=== PATIENT | male | born 1975 | race Caucasian/White ===

== ENCOUNTER 2017-02-06 13:54 | Emergency (ER) | payer MEDICARE, MEDICAID ==
[~2017-02-06] VITALS: Ht 177.8 cm; Wt 77.1 kg
[2017-02-06] MEDS ORDERED: NS IV 1000 ML 1,000 ML IV ONE (14:15)
--- NOTE | 2017-02-06 14:15 | ED GU-Male ---
General Chief Complaint: Cardiac/General Problems Stated Complaint: BLOOD PRESSURE DROPPING Nursing Triage Note: ARRIVED VIA WC TO ROOM 07 WITH COMPLAINTS OF HYPOTENSION. STATES IT HAS BEEN LOW FOR SEVERAL DAYS AND HAS TAKEN MIDODRINE TO INCRESASE IT. CALLED WHO TOLD HIM TO COME TO ER. PT THINKS IT MIGHT BE A UTI. Source: patient, spouse Exam Limitations: no limitations History of Present Illness Time seen by provider: 14:07 Initial Comments Patient presents to ER by private conveyance with his with concern that the past few days he has had labile blood pressure. 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 But he's the pressure has been more labile as of the last 3 days. He is using a miter gin that was prescribed to him to keep his blood pressure up the ball and as low as 60 systolic. He was feeling pale and weak. He is in a electronic wheelchair. Denies any cough, fevers, malaise, shortness of breath. He has a suprapubic Catheter which he changed last week. He does not smoke, drink or do drugs. Patient has been on prednisone for over a year. This is to treat his ulcerative colitis. He is recently tapered down from 15-7-1/2 mg daily. Allergies and Home Medications Allergies Coded Allergies: morphine (Unverified Allergy, Unknown, 09/09/15) Constitutional: No chills, No fever, No malaise Respiratory: No short of breath, No wheezing Cardiovascular: No palpitations, No syncope Gastrointestinal: No abdominal pain, constipation, No diarrhea, No nausea, No vomiting Genitourinary: see HPI Musculoskeletal: see HPI, No back pain, No joint pain Skin: No pruritus, No rash Psychiatric/Neurological: Denies Headache, Denies Numbness Past Axawgfu-Raauws-Tqnlmw Hx Patient Social History Alcohol Use: Denies Use Recreational Drug Use: Yes Smoking Status: Never a Smoker Recent Foreign Travel: No Contact w/Someone Who Travel: No Recent Infectious Disease Expo: No Recent Hopitalizations: No Respiratory Hx Respiratory Disorders: No Neurological Neurological Disorders: Spinal Cord Injury Physical Exam Vital Signs Vital Sign - Last 12Hours 02/06/17 14:01 Temp 97.5 Pulse 78 Resp 18 B/P (MAP) 101/76 Pulse Ox 92 O2 Delivery Room Air Capillary Refill : Less Than 3 Seconds General Appearance: WD/WN, no apparent distress (motorized wheelchair) HEENT: normal ENT inspection, TMs normal, pharynx normal Neck: non-tender, normal inspection Cardiovascular: normal peripheral pulses, regular rate, rhythm, no edema ( graduated elastic compression stockings in place bilateral lower extremity's.) Respiratory: lungs clear, normal breath sounds Gastrointestinal: normal bowel sounds, non tender, soft Male: normal genitalia, other (suprapubic catheter without erythema or discharge. Dressing in place.) Neurologic/Psychiatric: alert, oriented x 3 Skin: normal color, warm/dry Lymphatic: no adenopathy Progress/Results/Core Measures Results/Orders Lab Results Laboratory Tests Test 02/06/17 14:10 02/06/17 14:15 Range/Units Urine Color YELLOW Urine Clarity CLEAR Urine pH 6 5-9 Urine Specific [place] 1.005 L 1.016-1.022 Urine Protein 2+ H NEGATIVE Urine Glucose (UA) NEGATIVE NEGATIVE Urine Ketones NEGATIVE NEGATIVE Urine Nitrite NEGATIVE NEGATIVE Urine Bilirubin NEGATIVE NEGATIVE Urine Urobilinogen NORMAL NORMAL MG/DL Urine Leukocyte Esterase 3+ H NEGATIVE Urine RBC (Auto) 5+ H NEGATIVE Urine RBC 0-2 /HPF Urine WBC 25-50 H /HPF Urine Crystals NONE /LPF Urine Bacteria TRACE /HPF Urine Casts NONE /LPF Urine Mucus NEGATIVE /LPF Urine Culture Indicated YES White Blood Count 14.2 H 4.3-11.0 10^3/uL Red Blood Count 4.47 4.35-5.85 10^6/uL Hemoglobin 13.4 13.3-17.7 G/DL Hematocrit 41 40-54 % Mean Corpuscular Volume 92 80-99 FL Mean Corpuscular Hemoglobin 30 25-34 PG Mean Corpuscular Hemoglobin Concent 33 32-36 G/DL Red Cell Distribution Width 15.4 H 10.0-14.5 % Platelet Count 318 130-400 10^3/uL Mean Platelet Volume 10.7 H 7.4-10.4 FL Neutrophils (%) (Auto) 80 H 42-75 % Lymphocytes (%) (Auto) 9 L 12-44 % Monocytes (%) (Auto) 7 0-12 % Eosinophils (%) (Auto) 4 0-10 % Basophils (%) (Auto) 0 0-10 % Neutrophils # (Auto) 11.4 H 1.8-7.8 X 10^3 Lymphocytes # (Auto) 1.2 1.0-4.0 X 10^3 Monocytes # (Auto) 1.0 0.0-1.0 X 10^3 Eosinophils # (Auto) 0.5 H 0.0-0.3 10^3/uL Basophils # (Auto) 0.0 0.0-0.1 10^3/uL Neutrophils % (Manual) 75 % Lymphocytes % (Manual) 12 % Monocytes % (Manual) 9 % Eosinophils % (Manual) 3 % Band Neutrophils 1 % Anisocytosis SLIGHT Sodium Level 141 135-145 MMOL/L Potassium Level 3.3 L 3.6-5.0 MMOL/L Chloride Level 107 98-107 MMOL/L Carbon Dioxide Level 24 21-32 MMOL/L Anion Gap 10 5-14 MMOL/L Blood Urea Nitrogen 12 7-18 MG/DL Creatinine 0.72 0.60-1.30 MG/DL Estimat Glomerular Filtration Rate > 60 BUN/Creatinine Ratio 17 Glucose Level 139 H 70-105 MG/DL Calcium Level 9.5 8.5-10.1 MG/DL Total Bilirubin 0.5 0.1-1.0 MG/DL Aspartate Amino Transf (AST/SGOT) 16 5-34 U/L Alanine Aminotransferase (ALT/SGPT) 23 0-55 U/L Alkaline Phosphatase 90 40-136 U/L Total Protein 7.1 6.4-8.2 GM/DL Albumin 3.7 3.2-4.5 GM/DL My Orders Orders - HERNANDEZ CAPELLAN Cbc With Automated Diff (02/06/17 14:15) Comprehensive Metabolic Panel (02/06/17 14:15) Ua Culture If Indicated (02/06/17 14:15) Saline Lock/Iv-Start (02/06/17 14:15) Ns Iv 1000 Ml (Sodium Chloride 0.9%) (02/06/17 14:15) Manual Differential (02/06/17 14:15) Ua Culture If Indicated (02/06/17 14:28) Urine Culture (02/06/17 14:10) Ceftriaxone Injection (Rocephin Injectio (02/06/17 14:45) Potassium Chloride (Tablet) (K Dur Table (02/06/17 15:15) Medications Given in ED Current Medications Medications Dose Ordered Sig/Jovanni Route Start Time Stop Time Status Last Admin Dose Admin Ceftriaxone Sodium 1000 mg/ Sodium Chloride 50 ml @ 100 mls/hr ONCE ONCE IV 02/06/17 14:45 02/06/17 15:14 DC 02/06/17 15:06 100 MLS/HR Potassium Chloride 20 meq ONCE ONCE PO 02/06/17 15:15 02/06/17 15:16 DC 02/06/17 15:09 20 MEQ Sodium Chloride 1,000 ml @ 0 mls/hr Q0M ONCE IV 02/06/17 14:15 02/06/17 14:17 DC 02/06/17 14:21 1,000 MLS/HR Vital Signs/I&O Vital Sign - Last 12Hours 02/06/17 14:01 Temp 97.5 Pulse 78 Resp 18 B/P (MAP) 101/76 Pulse Ox 92 O2 Delivery Room Air Blood Pressure Mean: 84 Progress Note : Time: 15:30 Progress Note Elevated white count is mild and may be due to the prednisone as it was seen about the same in 2016. We'll give a gram of Rocephin and set him up for Keflex outpatient. His PCP can follow the culture. Departure Impression Impression: Primary Impression: UTI (urinary tract infection) Qualified Codes: T83.510A - Infection and inflammatory reaction due to cystostomy catheter, initial encounter; N39.0 - Urinary tract infection, site not specified Disposition: 01 HOME, SELF-CARE Condition: Stable Departure-Patient Inst. Decision time for Depature: 15:31 Referrals: CORI PHAM DO (PCP) Primary Care Physician Patient Instructions: Urinary Tract Infection, Adult (DC) Add. Discharge Instructions: You have a UTI which is associated with your catheter. You should call Dr. Pham and have his office follow the culture results in 2-3 days. You'll be started on antibiotic called Keflex to be taken twice daily with a meal. You should also use probiotics twice daily. If you have new or worsening symptoms such as fever or nausea a should return to the ER otherwise plan on following up with your primary care physician as needed. Drink plenty of fluids. Your potassium was marginally low. You've been given a single dose of potassium in the ER and you should probably eat some bananas or take a multivitamin or drinking Gatorade when you get home. All discharge instructions reviewed with patient and/or family. Voiced understanding. Scripts Cephalexin (Keflex) 500 Mg Capsule 500 MG PO BID for 14 Days, #12 CAP 0 Refills Prov: HERNANDEZ CAPELLAN 02/06/17 HERNANDEZ CAPELLAN Feb 06, 2017 14:15
[2017-02-06 14:21] LABS: BILIRUBIN,URINE NEGATIVE (NEGATIVE); KETONES,URINE NEGATIVE (NEGATIVE); LEUKOCYTE ESTERASE ,URINE 3+ (NEGATIVE); NITRITE,URINE NEGATIVE (NEGATIVE); PH,URINE 6 (5-9); PROTEIN,URINE 2+ (NEGATIVE); UROBILINOGEN,URINE NORMAL (NORMAL)
[2017-02-06 14:24] LABS: BASOPHILS % (AUTO) 0 % (0-10); EOSINOPHILS # (AUTO) 0.5 10^3/uL (0.0-0.3); EOSINOPHILS % (AUTO) 4 % (0-10); LYMPHOCYTES # (AUTO) 1.2 X 10^3 (1.0-4.0); LYMPHOCYTES % (AUTO) 9 % (12-44); MEAN CORPUSCULAR HEMOGLOBIN 30 PG (25-34); MEAN CORPUSCULAR HGB CONC 33 G/DL (32-36); MEAN CORPUSCULAR VOLUME 92 FL (80-99); MEAN PLATELET VOLUME 10.7 FL (7.4-10.4); MONOCYTES % (AUTO) 7 % (0-12); NEUTROPHILS # (AUTO) 11.4 X 10^3 (1.8-7.8); NEUTROPHILS % (AUTO) 80 % (42-75); PLATELET COUNT 318 10^3/uL (130-400); RED BLOOD COUNT 4.47 10^6/uL (4.35-5.85); RED CELL DISTRIBUTION WIDTH 15.4 % (10.0-14.5); WHITE BLOOD COUNT 14.2 10^3/uL (4.3-11.0)
[2017-02-06 14:29] LABS: WBC,URINE 25-50 /HPF
[2017-02-06] MEDS ORDERED: cefTRIAXone INJECTION 1,000 MG in NS (IVPB) 50 ML IV ONE (14:45)
[2017-02-06 14:49] LABS: ALANINE AMINOTRANSFERASE 23 U/L (0-55); ALBUMIN 3.7 GM/DL (3.2-4.5); ANION GAP 10 MMOL/L (5-14); ASPARTATE AMINO TRANSFERASE 16 U/L (5-34); BILIRUBIN,TOTAL 0.5 MG/DL (0.1-1.0); BLOOD UREA NITROGEN 12 MG/DL (7-18); BUN/CREATININE RATIO 17; CALCIUM 9.5 MG/DL (8.5-10.1); CARBON DIOXIDE 24 MMOL/L (21-32); CHLORIDE 107 MMOL/L (98-107); CREATININE SERUM 0.72 MG/DL (0.60-1.30); GFR ESTIMATED > 60; GLUCOSE 139 MG/DL (70-105); POTASSIUM 3.3 MMOL/L (3.6-5.0); SODIUM 141 MMOL/L (135-145); TOTAL PROTEIN 7.1 GM/DL (6.4-8.2)
[2017-02-06 14:51] LABS: BAND NEUTROPHILS 1 %; EOSINOPHILS % (MANUAL) 3 %; LYMPHOCYTES % (MANUAL) 12 %; NEUTROPHILS % (MANUAL) 75 %
[2017-02-06 14:57] LABS: ANISOCYTOSIS SLIGHT
[2017-02-06] MEDS ORDERED: KCL 20 MEQ TAB (K-DUR) PO ONE (15:15)
[2017-02-06] MEDS ORDERED: CEPH-507 PO (15:36)
[2017-02-06 15:40] VITALS: BP 124/82
--- OUTSIDE RECORDS SUMMARY | 2017-02-07 17:57 | XMS REPORT | Continuity of Care Document ---
Author Author [facility] Organization [facility] Address Unknown Phone Unavailable Allergies Active Description Code Type Severity Reaction Onset Reported/Identified Relationship to Patient Clinical Status Yes morphine [id number] Drug Allergy Unknown N/A 09/09/2015 Medications Problems Date Dx Coded Attending Type Code Diagnosis Diagnosed By 03/28/2011 Ot 272.4 HYPERLIPIDEMIA NEC/NOS 03/28/2011 Ot 344.00 QUADRIPLEGIA, UNSPECIFIED 03/28/2011 Ot 556.9 ULCERATIVE COLITIS, UNSPECIFIED 03/28/2011 Ot 596.54 NEUROGENIC BLADDER, NOT OTHERWISE SPECIF 05/14/2012 Ot 272.4 HYPERLIPIDEMIA NEC/NOS 05/14/2012 Ot 344.00 QUADRIPLEGIA, UNSPECIFIED 05/14/2012 Ot 556.9 ULCERATIVE COLITIS, UNSPECIFIED 05/14/2012 Ot 596.54 NEUROGENIC BLADDER, NOT OTHERWISE SPECIF 01/07/2013 Ot 789.00 ABDOMINAL PAIN, UNSPECIFIED SITE 01/07/2013 Ot 790.6 ABN BLOOD CHEMISTRY NEC 10/27/2014 Ot 787.99 10/27/2014 Ot 788.99 10/27/2014 Ot 789.00 10/27/2014 Ot 599.72 10/27/2014 CORI VERDE DO Ot 723.1 10/27/2014 MANNY GOLDBERG Ot 611.1 05/13/2015 Ot 787.99 05/13/2015 Ot 788.99 05/13/2015 Ot 789.00 05/13/2015 Ot 599.72 05/13/2015 CORI VERDE DO Ot 723.1 05/13/2015 MANNY GOLDBERG Ot 611.1 05/13/2015 Ot 787.99 05/13/2015 Ot 788.99 05/13/2015 Ot 789.00 05/13/2015 Ot 599.72 05/13/2015 CORI VERDE DO Ot 723.1 05/13/2015 MANNY GOLDBERGP Ot 611.1 06/03/2015 DEFFENBAUGH DO, CELIO D Ot E03.9 06/03/2015 DEFFENBAUGH DO, CELIO D Ot K51.011 06/03/2015 DEFFENBAUGH DO, CELIO D Ot K51.211 06/03/2015 DEFFENBAUGH DO, CELIO D Ot R63.4 06/03/2015 DEFFENBAUGH DO, CELIO D Ot R78.9 06/03/2015 Ot 787.99 06/03/2015 Ot 788.99 06/03/2015 Ot 789.00 06/03/2015 Ot 599.72 06/03/2015 CORI VERDE DO Ot 723.1 06/03/2015 MANNY GOLDBERG [facility] Ot 611.1 06/03/2015 DEFFENBAUGH DO, CELIO D Ot E03.9 06/03/2015 DEFFENBAUGH DO, CELIO D Ot K51.011 06/03/2015 DEFFENBAUGH DO, CELIO D Ot K51.211 06/03/2015 DEFFENBAUGH DO, CELIO D Ot R63.4 06/03/2015 DEFFENBAUGH DO, CELIO D Ot R78.9 09/11/2015 DEFFENBAUGH DO, CELIO D Ot D64.9 09/11/2015 DEFFENBAUGH DO, CELIO D Ot D64.9 09/11/2015 DEFFENBAUGH DO, CELIO D Ot D64.9 09/11/2015 DEFFENBAUGH DO, CELIO D Ot D64.9 09/14/2015 DEFFENBAUGH DO, CELIO D Ot D64.9 09/14/2015 DEFFENBAUGH DO, CELIO D Ot D64.9 09/16/2015 DEFFENBAUGH DO, CELIO D Ot D64.9 09/18/2015 DEFFENBAUGH DO, CELIO D Ot D64.9 11/05/2015 DEFFENBAUGH DO, CELIO D Ot D64.9 11/06/2015 DEFFENBAUGH DO, CELIO D Ot D64.9 12/08/2015 DEFFENBAUGH DO, CELIO D Ot D64.9 ANEMIA, UNSPECIFIED 06/02/2016 Ot 787.99 OTHER GI SYSTEM SYMPTOMS 06/02/2016 Ot 788.99 OTHER SYMPTOMS INVOLVING URINARY SYSTEM 06/02/2016 Ot 789.00 ABDOMINAL PAIN, UNSPECIFIED SITE 06/02/2016 Ot 599.72 MICROSCOPIC HEMATURIA 06/02/2016 MEHREEN CORI SAVAGE Ot 723.1 CERVICALGIA 06/02/2016 GOLDBERG MANNY Merry [employer] Ot 611.1 HYPERTROPHY OF BREAST 06/02/2016 CELIO GUZMÁN DO Ot E03.9 HYPOTHYROIDISM, UNSPECIFIED 06/02/2016 CELIO GUZMÁN DO Ot K51.011 ULCERATIVE (CHRONIC) PANCOLITIS WITH REC 06/02/2016 CELIO GUZMÁN DO Ot K51.211 ULCERATIVE (CHRONIC) PROCTITIS WITH RECT 06/02/2016 CELIO GUZMÁN DO Ot R63.4 ABNORMAL WEIGHT LOSS 06/02/2016 CELIO GUZMÁN DO Ot R78.9 FINDING OF UNSP SUBSTANCE, NOT NORMALLY 06/02/2016 CELIO GUZMÁN DO Ot D64.9 ANEMIA, UNSPECIFIED 06/03/2016 JOSE MEEKS MD Ot G82.50 QUADRIPLEGIA, UNSPECIFIED 06/03/2016 JOSE MEEKS MD Ot M81.0 AGE-RELATED OSTEOPOROSIS W/O CURRENT PAT 06/03/2016 JOSE MEEKS MD Ot Z79.52 LONGTERM (CURRENT) USE OF SYSTEMIC STER 06/22/2016 JOSE MEEKS MD Ot G82.50 QUADRIPLEGIA, UNSPECIFIED 06/22/2016 JOSE MEEKS MD Ot M81.0 AGE-RELATED OSTEOPOROSIS W/O CURRENT PAT 06/22/2016 JOSE MEEKS MD Ot Z79.52 LONGTERM (CURRENT) USE OF SYSTEMIC STER Procedures Results Encounters ACCT No. Visit Date/Time Discharge Status Pt. Type Provider Facility Loc./Unit Complaint [id number] 09/18/2015 10:26:00 2015 00:01:00 [facility] [id number] 05/14/2015 15:07:00 2014 23:59:59 CLS Outpatient CELIO GUZMÁN DO [facility] LAB R78.9 [id number] 05/13/2015 09:51:00 2014 23:59:59 CLS Outpatient CELIO GUZMÁN DO [facility] LAB ULCERATIVE PANCOLITIS,ABN WEIGHT LOSS,HYPOTHYROIDI [id number] 04/01/2014 09:54:00 2013 23:59:59 CLS Outpatient MANNY GOLDBERG [facility] RAD MASS [id number] 08/22/2013 13:15:00 2013 23:59:59 CLS Outpatient CORI VERDE DO [facility] RAD CERVICAL SPASM [id number] 04/04/2013 19:43:00 2012 23:59:59 CLS Outpatient [id number] 06/02/2016 10:07:00 ACT Outpatient JOSE MEEKS MD [facility] RAD QUADRIPLEGIA CHRONIC USE OF PRETNISONE [id number] 12/09/2015 00:09:00 PEN Preadmit CELIO GUZMÁN DO [facility] SDC ANEMIA [id number] 10/19/2012 11:35:00 Document Registration [id number] 10/09/2012 12:12:00 Document Registration [id number] 10/04/2012 14:28:00 Document Registration [id number] 02/15/2012 10:37:00 Document Registration [id number] 12/29/2010 10:16:00 Document Registration
--- OUTSIDE RECORDS SUMMARY | 2017-02-07 17:57 | XMS REPORT | Continuity of Care Document ---
Author Author [facility] Organization [facility] Address Unknown Phone Unavailable Care Team Providers Care [employer] Supervisor Name Role Phone Guillaume Pham PCP [phone] Source Comments Some departments are not documenting in the electronic medical record. If you do not see the information that you expected, contact Release of Information in the Health Information Management department at [phone] for further assistance in locating additional records.[facility] Active Allergies and Adverse Reactions Allergen Noted Date Severity Reactions Comments Morphine 06/14/2015 Medium SHORTNESS OF BREATH Current Medications Prescription Sig. Disp. Refills Start End Date Status Date baclofen (LIORESAL) 20 mg Take 20 mg by mouth twice Active tablet daily. oxybutynin XL (DITROPAN Take 10 mg by mouth Active XL) 10 mg tablet daily. MULTIVITAMIN (MULTIPLE Take 1 Tab by mouth daily Active VITAMIN PO) as needed. bisacodyl (DULCOLAX) 10 Insert or Apply 10 mg to Active mg rectal suppository rectal area as directed daily. docusate sodium (ENEMEEZ) Insert or Apply 1 Enema Active 283 mg/5 mL enem to rectal area as directed daily. May repeat as needed. acetaminophen (TYLENOL) Take 2 Tabs by mouth 30 Tab 1 06/19/20 Active 325 mg tablet every 4 hours as needed. 15 mirtazapine (REMERON) 15 Take 15 mg by mouth at Active mg tablet bedtime daily. Lactobacillus rhamnosus Take 1 Cap by mouth twice 60 Cap 3 08/10/19 Active GG (CULTURELLE) 15 daily with meals. 16 billion cell cpSP loperamide (IMODIUM) 2 mg Take 1 Cap by mouth four 30 Cap 08/10/19 Active capsule times daily as needed for 16 Diarrhea. Mesalamine (LIALDA) 1.2 Take 4 Tabs by mouth 120 Tab 1 08/10/19 Active gram tablet daily. Swallow whole; do 16 not break, chew or crush. Administer with a meal. Indications: ULCERATIVE COLITIS hemorrhoidal prep Insert or Apply 1 12 0 08/10/19 Active (ANUSOL) 0.25 % rectal Suppository to rectal Suppository 16 suppository area as directed daily as needed (hemorrhoidal bleeding). nystatin (MYCOSTATIN) Apply bid prn to scrotum 30 g 0 08/10/19 Active 100,000 unit/g topical as needed for rash 16 cream mesalamine(+) (CANASA) Insert or Apply 1 60 1 08/10/19 Active 1,000 mg supp Suppository to rectal Suppository 16 area as directed twice daily. Active Problems Problem Noted Date Chronic osteomyelitis of pelvis ([facility]) 07/28/2015 Osteomyelitis, pelvis ([facility]) 07/08/2015 Acute osteomyelitis of pelvic region ([facility]) 06/14/2015 Overview: S/p debridement of right ischial tuberosity 06/13/15 L ast Assessment & Plan: Wound healed. Able to get wet. Do not have to keep it covered. Should practice frequent offloading and position changing and avoid time on this wound. Monitor for changes. Abx per ID recs. Can fu with ortho on a PRN basis. Agree with fu with rehab hospital as scheduled for later this month for the leg spasms. Surgery can exacerbate those and may take time to decrease. Immunizations Name Dates Previously Given Next Due Flu Vaccine 06/14/2015 Quadrivalent=>3 Yo (Preservative Free) Social History Tobacco Use Types Packs/Day Years Used Date Never Smoker Smokeless Tobacco: Never Used Tobacco Cessation: Counseling Given: Yes Comments: Alcohol Use Drinks/Week oz/Week Comments No 0 Standard 0.0 drinks or equivalent Last Filed Vital Signs Vital Sign Reading Time Taken Blood Pressure 99/65 08/10/2015 6:18 AM PROGRAM DIRECT[employer]ION Pulse 69 08/10/2015 6:18 AM PROGRAM DIRECT[employer] TELE[employer]ION Temperature 36.4 C (97.6 F) 08/10/2015 6:18 AM PROGRAM DIRECTOR [employer] TELEVISION Respiratory Rate - - Height 1.829 m (6') 08/03/2015 8:56 AM PROGRAM [employer] TELEVISION Weight 68.04 kg (150 lb) 08/03/2015 8:56 AM PROGRAM DIRECT[employer] TELEVISION Body Mass Index 20.34 08/03/2015 8:56 AM PROGRAM DIRECT[employer] TELEVISION Oxygen Saturation 98% 08/10/2015 6:18 AM PROGRAM DIRECT[employer] TELEVISION Plan of Care Health Maintenance Due Date Last Done Comments Physical (Comprehensive) 1980 Exam Pertussis Vaccine 1984 Tetanus Vaccine 1990 Influenza Vaccine 03/31/2017 06/14/2015 Results from Last 3 Months Not on file
== END 2017-02-06 15:40 | disposition home or self-care (01) ==
LOC: EDUNIT# 13:54 → ER 13:56
DX: F19.90 Other psychoactive substance use, unspecified, uncomplicated; Z87.828 Personal history of other (healed) physical injury and trauma; N39.0 Urinary tract infection, site not specified
CPT/HCPCS: 36415; 80053; 81000; 85007; 85027; 87077; 87088; 87186; 96361; 96365

== ENCOUNTER → 2018-04-16 | Outpatient (CLI) | payer MEDICARE ==
[~2018-04-16] MED LIST: CEPH-507 PO
--- NOTE | 2018-04-16 14:54 | Diagnostic Imaging Report ---
PROCEDURE: US left lower extremity venous. TECHNIQUE: Multiple real-time grayscale images were obtained over the left lower extremity in various projections. Additional duplex Doppler and color Doppler images were also obtained. INDICATION: Left lower extremity pain and swelling. Left lower extremity deep venous system shows normal compressibility with normal response to augmentation and Valsalva. There does appear to be thrombus within a superficial branch of the greater saphenous vein in the distal thigh. No fluid collections are seen. IMPRESSION: 1. No evidence of left lower extremity DVT. 2. Findings consistent with superficial thrombophlebitis involving a branch of the greater saphenous vein in the left thigh. Dictated by: Dictated on workstation # [id number]
== END ==
LOC: RAD 13:31
PROVIDERS: ATTEND Nurse Practitioner Community Health
DX: M79.89 Other specified soft tissue disorders (principal)

== ENCOUNTER → 2019-01-01 | Outpatient (CLI) | payer MEDICARE ==
[2019-01-01 14:40] LABS: ALANINE AMINOTRANSFERASE 40 U/L (0-55); ALBUMIN 4.2 GM/DL (3.2-4.5); ALKALINE PHOSPHATASE 135 U/L (40-136); BILIRUBIN,TOTAL 0.3 MG/DL (0.1-1.0); BUN/CREATININE RATIO 20; CALCIUM 10.1 MG/DL (8.5-10.1); CARBON DIOXIDE 25 MMOL/L (21-32); CHLORIDE 108 MMOL/L (98-107); CREATININE SERUM 0.74 MG/DL (0.60-1.30); GFR ESTIMATED > 60; GLUCOSE 122 MG/DL (70-105); POTASSIUM 3.9 MMOL/L (3.6-5.0); SODIUM 140 MMOL/L (135-145)
== END ==
LOC: LAB 14:00
PROVIDERS: ATTEND Physical Medicine & Rehabilitation
DX: N31.9 Neuromuscular dysfunction of bladder, unspecified (principal); N28.9 Disorder of kidney and ureter, unspecified; K76.89 Other specified diseases of liver; T50.905A Adverse effect of unspecified drugs, medicaments and biological substances, initial encounter
CPT/HCPCS: 36415; 80053

== ENCOUNTER → 2019-12-27 | Outpatient (CLI) | payer MEDICARE ==
[2019-12-27 15:46] LABS: BILIRUBIN,URINE NEGATIVE (NEGATIVE); CLARITY,URINE CLOUDY; COLOR,URINE YELLOW; GLUCOSE, URINE (UA) NEGATIVE (NEGATIVE); KETONES,URINE NEGATIVE (NEGATIVE); LEUKOCYTE ESTERASE ,URINE 3+ (NEGATIVE); NITRITE,URINE NEGATIVE (NEGATIVE); PH,URINE 6.5 (5-9); PROTEIN,URINE NEGATIVE (NEGATIVE)
[2019-12-27 16:14] LABS: BACTERIA,URINE MODERATE /HPF
== END ==
LOC: LAB 14:59
PROVIDERS: ATTEND Nurse Practitioner Community Health
DX: R30.0 Dysuria (principal)
CPT/HCPCS: 81000; 87077; 87088; 87186

== ENCOUNTER → 2021-08-02 | Outpatient (CLI) | payer MEDICARE ==
[~2021-08-02] VITALS: Ht 71 cm; Wt 86.1 kg
[~2021-08-02] MED LIST changes: +ACETAMINOPHEN 500 MG TAB (TYLENOL) PO PRN; +BAMLANIVIMAB 700 MG/ETESEVIMAB 1,400 MG IN NS IV ONE; +EPINEPHrine INJECTION 1 MG/ML AMP IM PRN; +ONDANSETRON 4 MG/2 ML (SDV) Z0FRAN IV PRN; +diphenhydrAMINE 50 MG/ML INJ (BENADRYL) IV PRN
[2021-08-02 09:10] VITALS: BP 97/70
[2021-08-02 10:48] VITALS: BP 85/43
== END ==
LOC: INFUSION 08:56
PROVIDERS: ATTEND Nurse Practitioner Family
DX: U07.1 COVID-19 (principal)